=== PATIENT | female | born 1950 | race Caucasian/White ===

== ENCOUNTER 2018-01-01 21:37 | Emergency (ER) | payer MEDICARE, BC ==
[2018-01-01] MEDS ORDERED: BLOOD PRESSURE MED (21:52)
[2018-01-01] MEDS ORDERED: METF-420 PO (21:52)
[2018-01-01] MEDS ORDERED: ASPIRIN 81 MG CHEW PO ONE (22:05)
--- NOTE | 2018-01-01 22:07 | EKG ---
FACILITY: [facility] PATIENT NAME: VALENTIN MORALES : [id number] MR: [id number] V: [id number] EXAM DATE: ORDERING PHYSICIAN: DORA MCFARLANE TECHNOLOGIST: Jelani Manriquez Reason : Blood Pressure : / mmHG Vent. Rate : 070 BPM Atrial Rate : 070 BPM P-R Int : 142 ms QRS Dur : 090 ms QT Int : 394 ms P-R-T Axes : 032 010 043 degrees QTc Int : 425 ms Normal sinus rhythm Normal ECG No previous ECGs available Confirmed by PASTOR MORALES ([id number]) on 01/02/2018 6:28:14 AM Referred By: Confirmed By:PASTOR MORALES
[2018-01-01 22:17] LABS: PLATELET COUNT, AUTOMATED 210 K/uL (150-450)
[2018-01-01 23:30] VITALS: BP 122/78
--- NOTE | 2018-01-01 23:33 | RADIOLOGY IMAGING REPORT ---
FACILITY: [facility] PATIENT NAME: Kym Campos : 1950 MR: [id number] V: [id number] EXAM DATE: ORDERING PHYSICIAN: DORA MCFARLANE TECHNOLOGIST: Location: [facility] Patient: Kym Campos : 1950 Visit/Account:[id number] Date of Sevice: 01/01/2018 CHEST SINGLE AP 01/01/2018 22:02 hours. HISTORY: Numbness down left arm for one hour. COMPARISON: None. CT cervical spine performed same day. TECHNIQUE: Portable AP view of the chest. FINDINGS: Tubes/lines/hardware: None. Pulmonary: There are dense nodular structures at the lung bases, likely calcified granulomas, given t heir density. The left is larger than the right. Lungs otherwise are clear. There is no pneumothorax or pleural effusion. Cardiomediastinal: Cardiac and mediastinal silhouettes are within normal limits. Bones/soft tissues: No acute osseous abnormality. There is degenerative change of the acromioclavicul ar joints. There is mild degenerative change of the spine. The visible abdomen is normal. IMPRESSION: 1. No acute cardiopulmonary process. Report Dictated By: Mariella Griffin at 01/01/2018 11:28 PM Report E-Signed By: Mariella Griffin at 01/01/2018 11:30 PM WSN:[id number]
--- NOTE | 2018-01-01 23:40 | RADIOLOGY IMAGING REPORT ---
FACILITY: [facility] [place] PATIENT NAME: Kym Campos : 1950 MR: [id number] V: [id number] EXAM DATE: ORDERING PHYSICIAN: DORA MCFARLANE TECHNOLOGIST: Location: [facility] Patient: Kym Campos : 1950 Visit/Account:[id number] Date of Sevice: 01/01/2018 C-SPINE W/O CONTRAST HISTORY: Left arm paresthesias/numbness down left arm for one hour. No injury. Evaluate for cervical stenosis. COMPARISON: None. TECHNIQUE: Axial images were obtained from the skull base through the upper thoracic spine. Coronal a nd sagittal reformatted images were obtained from the axial source data. One of the following dose optimization techniques was utilized in the performance of this exam: Autom ated exposure control; adjustment of the mA and/or kV according to the patient's size; or use of an i terative reconstruction technique. Specific details can be referenced in the facility's radiology CT exam operational policy. CONTRAST: None. FINDINGS: Musculoskeletal/vertebra: No acute osseous abnormality. There is slight reversal of the normal cervic al lordosis centered at C4-5. Vertebral body heights are maintained. There is 1 mm anterolisthesis of C3 on C4. There is mild degenerative disc disease at C4-5, C5-6, C7-T1 and of the upper thoracic spi ne. There is mild narrowing of the left neural foramen at C5-6. There is moderate bilateral foraminal stenosis at C4-5. Prevertebral soft tissues are within normal limits. The spinal canal is normal in caliber. Visualized upper chest: Normal. Soft tissues: Normal. Additional findings: There is mild calcification of the intracranial internal carotid arteries. There is periventricular low attenuation that is nonspecific, but most likely is due to mild chronic micro vascular ischemic change. IMPRESSION: 1. Mild degenerative changes. No spinal stenosis or acute osseous abnormality of the cervical spine. 2. There is reversal of the normal cervical lordosis centered at C4-5. This may be positional or due to muscle spasm. Report Dictated By: Mariella Griffin at 01/01/2018 11:30 PM Report E-Signed By: Mariella Griffin at 01/01/2018 11:36 PM WSN:[id number]
[2018-01-01] MEDS ORDERED: CYCL10TA29 PO (23:49)
--- NOTE | 2018-01-01 23:51 | ER Report ---
History and Physical Time Seen By MD: 21:41 Hx. of Stated Complaint: PT REPORTS NUMBNESS IN LEFT ARM. HPI/ROS CHIEF COMPLAINT: Paresthesias left arm HISTORY OF PRESENT ILLNESS: 67-year-old female presents with numbness and paresthesias in the left arm she denies trauma neck pain or stiffness denies chest pain shortness of breath back pain or other concerns. Denies weakness. REVIEW OF SYSTEMS: Constitutional: No fever, no chills. Eyes: No discharge. ENT: No sore throat. Cardiovascular: No chest pain, no palpitations. Respiratory: No cough, no shortness of breath. Gastrointestinal: No abdominal pain, no vomiting. Genitourinary: No hematuria. Musculoskeletal: No back pain. Skin: No rashes. Neurological: No headache. Allergies: Coded Allergies: No Known Drug Allergies (Unverified , 01/01/18) Home Meds Reported Medications [Blood Pressure Med] No Conflict Check 01/01/18 Metformin Hcl (METFORMIN HCL) 1,000 Mg Tablet, 1 TAB PO QDAY, TAB 01/01/18 Hx Substance Use Disorder: No Hx Alcohol Use: No Constitutional Vital Sign - Last 24 Hours 01/01/18 01/01/18 01/01/18 01/01/18 21:41 21:48 21:52 22:00 Temp 98.1 Pulse 74 73 Resp 14 24 B/P (MAP) 160/99 (119) 160/99 144/88 (106) Pulse Ox 93 93 O2 Delivery Room Air Physical Exam General Appearance: The patient is alert, has no immediate need for airway protection and no signs of toxicity. No acute distress Eyes: Pupils equal and round no pallor or injection. ENT, Mouth: Mucous membranes are moist. Respiratory: There are no retractions, lungs are clear to auscultation. Cardiovascular: Regular rate and rhythm. [ ] Gastrointestinal: Abdomen is soft and non tender, no masses, bowel sounds normal. Neurological: Normal neurological exam. No pronator drift. Normal management tech strength equal bilaterally 5 out of 5 flexion extension and abduction upper extremities 5 out of 5 strength lower extremities no facial droop equal symmetrical smile midline tongue deviation normal sensation V1 through V3 distribution and face as well as upper and lower extremity Skin: Warm and dry, no rashes. Musculoskeletal: Neck is supple non tender. Extremities are nontender, nonswollen and have full range of motion. [ ] DIFFERENTIAL DIAGNOSIS: After history and physical exam differential diagnosis was considered for acute cardiac syndrome cervical stenosis cervical lordosis due to muscle spasm doubt fracture dislocation or other dangerous process. Medical Decision Making Data Points Result Diagram: 01/01/18214901/01/182149 Laboratory Hematology Test 01/01/18 21:50 Red Blood Count 5.38 M/uL (4.17-5.56) Mean Corpuscular Volume 84.2 fL (80.0-96.0) Mean Corpuscular Hemoglobin 28.8 pg (26.0-33.0) Mean Corpuscular Hemoglobin Concent 34.2 g/dL (32.0-36.0) Red Cell Distribution Width 14.2 % (11.5-14.5) Mean Platelet Volume 7.4 fL (7.2-11.1) Neutrophils (%) (Auto) 56.4 % (39.4-72.5) Lymphocytes (%) (Auto) 33.2 % (17.6-49.6) Monocytes (%) (Auto) 6.9 % (4.1-12.4) Eosinophils (%) (Auto) 2.7 % (0.4-6.7) Basophils (%) (Auto) 0.8 % (0.3-1.4) Nucleated RBC Relative Count (auto) 0.3 /100WBC Neutrophils # (Auto) 4.1 K/uL (2.0-7.4) Lymphocytes # (Auto) 2.4 K/uL (1.3-3.6) Monocytes # (Auto) 0.5 K/uL (0.3-1.0) Eosinophils # (Auto) 0.2 K/uL (0.0-0.5) Basophils # (Auto) 0.1 K/uL (0.0-0.1) Nucleated RBC Absolute Count (auto) 0.02 K/uL Sodium Level 142 mmol/L (137-145) Potassium Level 4.1 mmol/L (3.5-5.0) Chloride Level 100 mmol/L (98-107) Carbon Dioxide Level 27 mmol/L (22-31) Blood Urea Nitrogen 23 mg/dl (7-18) Creatinine 1.10 mg/dl (0.52-1.04) Glomerular Filtration Rate Calc 49.7 Random Glucose 145 mg/dl (75-110) Calcium Level 10.1 mg/dl (8.4-10.2) Total Bilirubin 0.5 mg/dl (0.2-1.3) Aspartate Amino Transf (AST/SGOT) 23 U/L (0-35) Alanine Aminotransferase (ALT/SGPT) 26 U/L (0-56) Alkaline Phosphatase 88 U/L (0-126) Troponin I < 0.012 ng/ml B-Type Natriuretic Peptide < 5 pg/ml (0-100) Total Protein 7.7 gm/dl (6.3-8.2) Albumin 4.3 g/dl (3.5-5.0) Chemistry Test 01/01/18 21:50 White Blood Count 7.2 k/uL (4.5-11.0) Red Blood Count 5.38 M/uL (4.17-5.56) Hemoglobin 15.5 g/dL (12.0-16.0) Hematocrit 45.3 % (34.0-47.0) Mean Corpuscular Volume 84.2 fL (80.0-96.0) Mean Corpuscular Hemoglobin 28.8 pg (26.0-33.0) Mean Corpuscular Hemoglobin Concent 34.2 g/dL (32.0-36.0) Red Cell Distribution Width 14.2 % (11.5-14.5) Platelet Count 210 K/uL (150-450) Mean Platelet Volume 7.4 fL (7.2-11.1) Neutrophils (%) (Auto) 56.4 % (39.4-72.5) Lymphocytes (%) (Auto) 33.2 % (17.6-49.6) Monocytes (%) (Auto) 6.9 % (4.1-12.4) Eosinophils (%) (Auto) 2.7 % (0.4-6.7) Basophils (%) (Auto) 0.8 % (0.3-1.4) Nucleated RBC Relative Count (auto) 0.3 /100WBC Neutrophils # (Auto) 4.1 K/uL (2.0-7.4) Lymphocytes # (Auto) 2.4 K/uL (1.3-3.6) Monocytes # (Auto) 0.5 K/uL (0.3-1.0) Eosinophils # (Auto) 0.2 K/uL (0.0-0.5) Basophils # (Auto) 0.1 K/uL (0.0-0.1) Nucleated RBC Absolute Count (auto) 0.02 K/uL Glomerular Filtration Rate Calc 49.7 Calcium Level 10.1 mg/dl (8.4-10.2) Total Bilirubin 0.5 mg/dl (0.2-1.3) Aspartate Amino Transf (AST/SGOT) 23 U/L (0-35) Alanine Aminotransferase (ALT/SGPT) 26 U/L (0-56) Alkaline Phosphatase 88 U/L (0-126) Troponin I < 0.012 ng/ml B-Type Natriuretic Peptide < 5 pg/ml (0-100) Total Protein 7.7 gm/dl (6.3-8.2) Albumin 4.3 g/dl (3.5-5.0) ED Course/Re-evaluation ED Course Plan of care was agreed upon prior to hers placed. The patient remained stable vitals were were not suggestive of dangerous or severe process throughout her ED stay. Her paresthesias resolved prior to ED discharge. All results were discussed home care and follow-up was discussed reasons to return were also discussed Decision to Disposition Date: Jan 01, 2018 Decision to Disposition Time: 23:47 Depart Departure Latest Vital Signs Vital Signs Date Time Temp Pulse Resp B/P (MAP) Pulse Ox O2 Delivery O2 Flow Rate FiO2 01/01/18 22:00 144/88 (106) 01/01/18 21:52 73 24 93 01/01/18 21:48 98.1 Room Air Impression: Primary Impression: Paresthesia of left upper extremity Condition: Improved Disposition: HOME OR SELF-CARE Referrals: PASTOR INTERIANO MD (PCP) New Scripts Cyclobenzaprine Hcl (CYCLOBENZAPRINE HCL) 10 Mg Tablet 10 MG PO Q8H Y for MUSCLE SPASMS, #20 TAB 0 Refills Prov: DORA MCFARLANE MD 01/01/18 Patient Instructions: Muscle Spasm (ED) DORA MCFARLANE MD Jan 01, 2018 23:51
== END 2018-01-02 00:03 | disposition home or self-care (01) ==
LOC: ER 21:48
DX: R20.0 Anesthesia of skin (principal)
CPT/HCPCS: 71045; 72125; 83880; 84484; 85025; 93005; 99284; A9270; 82040; 82247; 82310; 82374; 82435; 82565; 82947; 84075; 84132; 84155; 84295; 84450; 84460; 84520